=== PATIENT | female | born 1985 | race Caucasian/White ===

== ENCOUNTER → 2024-09-10 | Outpatient (CLI) | payer OTHER ==
[~2024-09-10] MED LIST: MOTRIN 800 MG E4 TAB PO; PRENATAL1 TA1 PO; ULTRAM50 MG PO
== END | disposition home or self-care (01) ==
LOC: LAB 07:48
PROVIDERS: ATTEND Internal Medicine
DX: R73.09 Other abnormal glucose (principal)